=== PATIENT | female | born 1960 | race Caucasian/White ===

== ENCOUNTER 2017-02-11 16:15 | Inpatient (IN) | payer MEDICARE ==
[~2017-02-11 16:15] MED LIST: ATIVAN0.5 M1 PO; ATIVAN0.5 MG PO; CALCIUM WITH V1 EAC2 PO; CELEXA20 M2 PO; FOLIC ACID1 M1 PO; GINSENG EXTRAC100 MG PO; NORCO 5-325 TA1 EACH PO; NORCO 5/3251 TA1 NG; OXYGEN; TARCEVA150 MG PO; ZOFRAN8 MG PO
[2017-02-12] MEDS ORDERED: NORVASC5 M2 PO (10:41)
[2017-02-12] MEDS ORDERED: ROSUVASTATIN CAL5 MG PO (10:41)
[2017-02-12] MEDS ORDERED: TOPROL XL50 M1 PO (10:42)
[2017-02-12] MEDS ORDERED: POTASSIUM CHLO10 ME2 PO (10:45)
[2017-02-12] MEDS ORDERED: OXYCODONE PO (10:48)
[2017-02-13] MEDS ORDERED: DEXAMETHASONE4 M1 PO (10:49)
[2017-02-13] MEDS ORDERED: TYLENOL EXTRA500 M1 PO (10:55)
[2017-02-13] MEDS ORDERED: DULCOLAX10 MG PR (10:58)
[2017-02-13] MEDS ORDERED: SM SENNA-S TAB1 EACH PO (10:59)
[2017-02-13 11:00] LABS: URINE APPEARANCE CLEAR; URINE BILIRUBIN NEGATIVE (NEG); URINE BLOOD LARGE (NEG); URINE COLOR PALE YELLOW; URINE GLUCOSE (UA) NEGATIVE (NEG); URINE KETONE NEGATIVE (NEG); URINE LEUKOCYTE ESTERASE POSITIVE (NEG); URINE NITRITE POSITIVE (NEG); URINE PROTEIN MODERATE (NEG); URINE SPECIFIC GRAVITY 1.005 (1.003-1.030)
[2017-02-13] MEDS ORDERED: LIDODERM1 EACH TOP (11:00)
[2017-02-13 11:01] LABS: URINE BACTERIA 1+; URINE OTHER VOLUME 2 ML; URINE RBC 0 /[HPF] (0-5); URINE WBC 0-4 /[HPF] (0-5)
== END 2017-02-13 17:00 | disposition hospice, home (50) | DRG 181 ==
LOC: 5WF 16:15
PROVIDERS: ADMIT Internal Medicine Hematology & Oncology
DX: C34.91 Malignant neoplasm of unspecified part of right bronchus or lung (principal); C78.7 Secondary malignant neoplasm of liver and intrahepatic bile duct; C79.31 Secondary malignant neoplasm of brain; C79.51 Secondary malignant neoplasm of bone; M87.852 Other osteonecrosis, left femur; R40.0 Somnolence; D64.81 Anemia due to antineoplastic chemotherapy; Z51.5 Encounter for palliative care; R62.7 Adult failure to thrive; Z66 Do not resuscitate; Z92.3 Personal history of irradiation; Z87.891 Personal history of nicotine dependence; Z92.21 Personal history of antineoplastic chemotherapy; Z88.1 Allergy status to other antibiotic agents; Z88.0 Allergy status to penicillin; Z79.899 Other long term (current) drug therapy; T45.1X5A Adverse effect of antineoplastic and immunosuppressive drugs, initial encounter
CPT/HCPCS: J2270; J3480